=== PATIENT | female | born 1985 | race Caucasian/White ===

== ENCOUNTER 2017-11-29 15:22 | Emergency (ER) | payer MEDICAID ==
[~2017-11-29] VITALS: Ht 165.1 cm; Wt 53.3 kg
[2017-11-29 16:41] LABS: BASOPHILS # (AUTO) 0.04 x10^3/uL (0-0.1); BASOPHILS % (AUTO) 1 % (0-1); EOSINOPHILS # (AUTO) 0.16 x10^3/uL (0-0.4); EOSINOPHILS % (AUTO) 2 % (1-7); LYMPHOCYTES # (AUTO) 2.29 x10^3/uL (1-3.4); LYMPHOCYTES % (AUTO) 33 % (22-44); MD NO; MEAN CORPUSCULAR HEMOGLOBIN 29.5 pg (27.0-34.8); MEAN CORPUSCULAR HGB CONC 32.8 g/dL (32.4-35.8); MEAN CORPUSCULAR VOLUME 89.9 fL (80-100); MEAN PLATELET VOLUME 8.8 fL (7.4-10.4); MONOCYTES # (AUTO) 0.52 x10^3/uL (0.2-0.8); MONOCYTES % (AUTO) 8 % (2-9); NEUTROPHILS # (AUTO) 3.96 x10^3/uL (1.8-6.8); NEUTROPHILS % (AUTO) 57 % (42-75); PLATELET COUNT 286 x10^3/uL (130-400); RED BLOOD COUNT 4.31 x10^6/uL (3.82-5.3); RED CELL DISTRIBUTION WIDTH 14.6 % (9.6-15.2)
[2017-11-29 16:52] LABS: ALANINE AMINOTRANSFERASE 16 U/L (12-78); ALBUMIN 3.6 g/dL (3.4-5.0); ANION GAP 5 mmol/L (5-15); CHLORIDE 109 mmol/L (98-107); CREATININE 0.82 mg/dL (0.55-1.02)
[2017-11-29 16:56] LABS: ALKALINE PHOSPHATASE 69 U/L (45-117); BILIRUBIN,TOTAL 0.3 mg/dL (0.2-1.0); TOTAL PROTEIN 6.7 g/dL (6.4-8.2); TROPONIN I < 0.015 ng/mL (0.000-0.045)
[2017-11-29 17:31] LABS: CULTURE INDICATED? YES; MICROSCOPIC INDICATED
[2017-11-29 18:07] VITALS: BP 98/57
== END 2017-11-29 18:08 ==
LOC: ED 18:02
DX: S63.511A Sprain of carpal joint of right wrist, initial encounter (principal); S63.512A Sprain of carpal joint of left wrist, initial encounter; N30.90 Cystitis, unspecified without hematuria; F17.210 Nicotine dependence, cigarettes, uncomplicated; R55 Syncope and collapse; X58.XXXA Exposure to other specified factors, initial encounter; Y93.89 Activity, other specified; Y92.89 Other specified places as the place of occurrence of the external cause; Y99.8 Other external cause status
CPT/HCPCS: 36415; 71045; 80053; 81001; 84484; 84703; 85025; 87077; 87086; 87186; 93005; 99285

== ENCOUNTER 2018-06-12 18:11 | Emergency (ER) | payer MEDICAID ==
[~2018-06-12] VITALS: Ht 165.1 cm; Wt 58.0 kg
[2018-06-12 18:40] LABS: BASOPHILS # (AUTO) 0.03 x10^3/uL (0-0.1); BASOPHILS % (AUTO) 1 % (0-1); EOSINOPHILS # (AUTO) 0.06 x10^3/uL (0-0.4); EOSINOPHILS % (AUTO) 1 % (1-7); LYMPHOCYTES # (AUTO) 2.67 x10^3/uL (1-3.4); LYMPHOCYTES % (AUTO) 45 % (22-44); MD NO; MEAN CORPUSCULAR HGB CONC 33.7 g/dL (32.4-35.8); MEAN CORPUSCULAR VOLUME 89.2 fL (80-100); MEAN PLATELET VOLUME 8.7 fL (7.4-10.4); MONOCYTES # (AUTO) 0.36 x10^3/uL (0.2-0.8); MONOCYTES % (AUTO) 6 % (2-9); NEUTROPHILS # (AUTO) 2.89 x10^3/uL (1.8-6.8); NEUTROPHILS % (AUTO) 48 % (42-75); PLATELET COUNT 285 x10^3/uL (130-400); RED CELL DISTRIBUTION WIDTH 14.7 % (9.6-15.2)
[2018-06-12 18:49] LABS: ALBUMIN 4.2 g/dL (3.4-5.0); ANION GAP 9 mmol/L (5-15); CALCIUM 9.4 mg/dL (8.5-10.1); CHLORIDE 108 mmol/L (98-107); CREATININE 0.89 mg/dL (0.55-1.02)
[2018-06-12 18:53] LABS: TROPONIN I < 0.015 ng/mL (0.000-0.045)
[2018-06-12 19:12] VITALS: BP 113/71
== END 2018-06-12 20:07 | disposition home or self-care (01) ==
LOC: ED 20:01
DX: R07.89 Other chest pain (principal); F31.9 Bipolar disorder, unspecified; J45.909 Unspecified asthma, uncomplicated; F17.200 Nicotine dependence, unspecified, uncomplicated; R20.0 Anesthesia of skin
CPT/HCPCS: 36415; 71045; 80048; 82040; 83690; 84484; 85025; 86140; 93005; 99285

== ENCOUNTER 2019-02-13 18:18 | Emergency (ER) | payer MEDICAID ==
[~2019-02-13] VITALS: Ht 165.1 cm; Wt 61.1 kg
[2019-02-13 18:31] VITALS: BP 103/73
== END 2019-02-13 19:25 ==
LOC: ED 19:19
DX: S83.92XA Sprain of unspecified site of left knee, initial encounter (principal); S93.402A Sprain of unspecified ligament of left ankle, initial encounter; S63.502A Unspecified sprain of left wrist, initial encounter; J45.909 Unspecified asthma, uncomplicated; F31.9 Bipolar disorder, unspecified; V00.131A Fall from skateboard, initial encounter; Y93.89 Activity, other specified; Y92.89 Other specified places as the place of occurrence of the external cause; Y99.8 Other external cause status
CPT/HCPCS: 99283

== ENCOUNTER 2019-11-16 16:48 | Emergency (ER) | payer MEDICAID ==
[~2019-11-16] VITALS: Ht 162.6 cm; Wt 69.5 kg
--- NOTE | 2019-11-16 18:39 | NUR ---
PT WENT TO FOR NUMBNESS IN HER LOWER EXTREMITIES. SENT HER TO ED. PT STATES THESE SYMPTOMS STARTED ON SATURDAY 11/11. HAVING DIFFICULTY WALKING WAS BIB BY WHEELCHAIR. ACCOMPANIED BY SHALINI. BLANKET PROVIDED. CALL LIGHT WITHIN REACH
[2019-11-16] MEDS ORDERED: KETOROLAC 30 MG/1 ML ONE (19:19)
[2019-11-16 19:29] LABS: BASOPHILS # (AUTO) 0.02 x10^3/uL (0-0.1); BASOPHILS % (AUTO) 0 % (0-1); EOSINOPHILS # (AUTO) 0.13 x10^3/uL (0-0.4); EOSINOPHILS % (AUTO) 2 % (1-7); LYMPHOCYTES # (AUTO) 3.02 x10^3/uL (1-3.4); LYMPHOCYTES % (AUTO) 38 % (22-44); MD NO; MEAN CORPUSCULAR HEMOGLOBIN 30.1 pg (27.0-34.8); MEAN CORPUSCULAR VOLUME 91.2 fL (80-100); MONOCYTES # (AUTO) 0.47 x10^3/uL (0.2-0.8); MONOCYTES % (AUTO) 6 % (2-9); NEUTROPHILS # (AUTO) 4.38 x10^3/uL (1.8-6.8); NEUTROPHILS % (AUTO) 55 % (42-75); PLATELET COUNT 286 x10^3/uL (130-400); RED BLOOD COUNT 4.48 x10^6/uL (3.82-5.3)
[2019-11-16] MEDS ORDERED: KETOROLAC 30 MG/1 ML IM ONE (19:30)
--- NOTE | 2019-11-16 19:39 | NUR ---
PT RESTING IN HOSPITAL BED. REPORTS PAIN IMPROVEMENT. NO NEEDS AT THIS TIME
[2019-11-16 20:04] LABS: ALBUMIN 3.8 g/dL (3.4-5.0); ANION GAP 7 mmol/L (5-15); CALCIUM 8.5 mg/dL (8.5-10.1); CHLORIDE 109 mmol/L (98-107); CREATININE 0.78 mg/dL (0.55-1.02)
--- NOTE | 2019-11-16 20:38 | NUR ---
PT RESTING IN HOSPITAL BED. AWAITING LAB RESULTS. NO NEEDS AT THIS TIME
[2019-11-16 21:53] VITALS: BP 114/77
== END 2019-11-16 21:56 | disposition home or self-care (01) ==
LOC: ED 21:28
DX: R20.2 Paresthesia of skin (principal); F17.200 Nicotine dependence, unspecified, uncomplicated; J45.909 Unspecified asthma, uncomplicated
CPT/HCPCS: 36415; 72110; 80048; 82040; 85025; 96372; 99284; J1885